=== PATIENT | female | born 1995 | race Two or more races ===

== ENCOUNTER 2025-04-04 18:48 | Emergency (ER) | payer MEDICAID, SELFPAY ==
[2025-04-04 18:49] VITALS: BMI 35.3
[2025-04-04 20:16] VITALS: BP 155/95; PULSE 60; RESP 16; TEMP 36.6; O2SAT 97
--- NOTE | 2025-04-04 20:19 | PD.EDBACK ---
ED Back Injury Pain RME/HPI General Chief Complaint: Back Pain/Injury Stated Complaint: I THINK I HAVE PINCHED NERVE, BACK PAIN Time Seen by Provider: 04/04/25 20:04 Arrival date/time: 04/04/25 18:48 29F with no significant PMH presents to ED with low back pain after she lifted her legs to put on some jeans. Patient denies fall/trauma and bowel/bladder incontinence. Limitations: no limitations Related Data Previous Rx's ?Medication ?Instructions ?Recorded Acetaminophen ER * (TYLENOL ER *) 650 mg PO Q8HR PRN PAIN ##30 10/18/16 ibuprofen 600 mg tablet 600 mg PO Q6HR PRN PAIN #30 tabs 10/18/16 Allergies Allergy/AdvReac Type Severity Reaction Status Date / Time No Known Allergies Allergy Verified 04/04/25 18:49 Review of Systems Review of Systems Systems Reviewed: All systems reviewed, normal except as documented Musculoskeletal Musculoskeletal: Reports as per HPI and Reports back pain Past Medical History Social History SMOKING STATUS: Never smoker ED Exam General Limitations: Present no limitations General appearance: Present alert and in no apparent distress Head Head exam: Present atraumatic Neck Neck exam: Present normal inspection, full ROM and trachea midline Chest Chest inspection: Present normal inspection and symmetric chest wall rise Neurological Exam Neurological exam: Present alert and oriented X3 Psychiatric Psychiatric exam: Present normal affect and normal mood Skin Skin exam: Present warm, dry, intact and normal color Course Quality Measures none Orders Category Date Time Status Baclofen [Lioresal] Med 04/04/25 20:11 Discontinued 10 mg PO X1 ONE Ketorolac Inj [Toradol Inj] Med 04/04/25 20:11 Discontinued 60 mg IM X1 ONE Vital Signs Vital signs: Vital Signs Temperature 97.9 F 04/04/25 20:16 Pulse Rate 60 04/04/25 20:16 Respiratory Rate 16 04/04/25 20:16 Blood Pressure 155/95 H 04/04/25 20:16 Pulse Oximetry (%) 97 04/04/25 20:16 Oxygen Delivery Method Room Air 04/04/25 20:16 O2 at 97% on RA and WNLs Back Pain / Injury MDM Narrative MDM Narrative:: 29F with no significant PMH presents to ED with low back pain after she lifted her legs to put on some jeans. Patient denies fall/trauma and bowel/bladder incontinence. Physical exam reveals uncomfortable female. Patient is afebrile and alert. Slight limp with gait. Meds and outreach counselor given. Patient data External records reviewed:: [facility] previous records Clinical information provided by:: patient Social determinants that could affect healthcare access:: none Patient has the following chronic illnesses:: none How is presenting disease/condition affected by chronic disease/condition?: no chronic disease Evaluation data The following diagnostics were reviewed and interpreted by me:: other (specify) (none) Lab and/or radiology exams considered but not ordered:: not ordered Interpretation Summary: n/a Medications / Prescriptions Medications or Prescriptions considered but not ordered:: ordered Medication administrations:: Medication Administration History Discontinued Medications Baclofen (Baclofen 10 Mg Tablet) 10 mg PO X1 ONE Stop: 04/04/25 20:12 Ketorolac Tromethamine (Ketorolac Inj 60 Mg/2 Ml Vial) 60 mg IM X1 ONE Stop: 04/04/25 20:12 above Consultations Consultation(s) initiated? (list below): No Diagnosis Differential diagnosis back pain/injury: lumbar radiculopathy, sciatica, strain of lumbar region, renal colic, pyelonephritis, thoracic back pain, AAA and discitis Most likely diagnosis given after review of the tests above:: straim of lumbar region Admission Indicated Admission indicated?: not indicated Admission Request Was there a request for admission?: No Disposition Plan Disposition Plan: Discharge Discharge Attestation Discharge Attestation: The patient and all family members were given an opportunity to ask questions and understood the discharge instructions. Discharge instructions specifically effects, indications for sooner follow up or return to the emergency department, and the expected course of current diagnosis. Patient condition: Stable Discharge Plan Plan Patient Disposition: HOME (Self Care) Discharge Disposition comment: Stable Prescriptions/Referrals Prescriptions/Med Rec: No Action Acetaminophen ER * (TYLENOL ER *) 650 MG TABLET.ER 650 mg PO Q8HR PRN (Reason: PAIN) Qty: 30 0RF ibuprofen 600 MG tablet 600 mg PO Q6HR PRN (Reason: PAIN) Qty: 30 0RF Referrals: Katelyn Colbert PA-C [Primary Care Provider] - In 1 week Problem List Clinical Impression: Strain of lumbar region Patient/Caregiver Discharge Instructions Education Materials: ED Back Sprain/Strain Additional Instructions: Please follow-up with PCP within 24-48 hours and return immediately if symptoms worsen. NSAIDs like ibuprofen tend to work better for this type of pain. Print Language: Palestinian Stand Alone Forms: Patient Portal Info Letter PA/[employer] Supervising Physician KARINA/ALEXUS Supervising Physician: Dr. Randle
[2025-04-04] MEDS: KETOROLAC INJ 60 MG/2 ML VIAL IM (20:54)
[2025-04-04] MEDS: BACLOFEN 10 MG TABLET PO (20:55)
== END 2025-04-04 21:35 | disposition home or self-care (01) ==
PROVIDERS: Emergency Provider Emergency Medicine; PCP Physician Assistant
DX: S39.012A Strain of muscle, fascia and tendon of lower back, initial encounter (principal); X50.9XXA Other and unspecified overexertion or strenuous movements or postures, initial encounter; Y93.89 Activity, other specified
CPT/HCPCS: 96372; 99283; J1885; A9270

== ENCOUNTER 2025-04-06 09:51 | Emergency (ER) | payer MEDICAID, SELFPAY ==
[2025-04-06 09:53] VITALS: PULSE 78; RESP 18; O2SAT 99; BMI 53.6
[2025-04-06 10:08] VITALS: BP 137/88; RESP 18; TEMP 36.9; O2SAT 95
--- NOTE | 2025-04-06 10:13 | PD.EDBACK ---
ED Back Injury Pain RME/HPI General Chief Complaint: Back Pain/Injury Stated Complaint: BACK PAIN Time Seen by Provider: 04/06/25 10:50 Arrival date/time: 04/06/25 09:51 Limitations: no limitations RME / HPI RME / HPI Narrative: DR. THADDEUS CHAUDHARI ED EVALUATION: 29-year-old female presents to the Emergency Department via EMS with complaints of mid-back pain on the right side radiating down her right leg. She reports that the pain began recently and has been worsening despite taking Tylenol and ibuprofen as recommended by her clinic. She denies numbness, tingling, weakness, or bowel or bladder incontinence. No history of trauma, fever, or dysuria. No known allergies. Related Data Previous Rx's ?Medication ?Instructions ?Recorded Acetaminophen ER * (TYLENOL ER *) 650 mg PO Q8HR PRN PAIN ##30 10/18/16 ibuprofen 600 mg tablet 600 mg PO Q6HR PRN PAIN #30 tabs 10/18/16 Allergies Allergy/AdvReac Type Severity Reaction Status Date / Time No Known Allergies Allergy Verified 04/06/25 09:56 Review of Systems Review of Systems Systems Reviewed: All systems reviewed, normal except as documented Past Medical History Past Medical History CARDIAC: Positive Heart Murmur (as a child but resolved) Social History SMOKING STATUS: Never smoker SUBSTANCE USE: does not use ALCOHOL: Never ED Exam General Limitations: Present no limitations General appearance: Present alert and in distress (looks uncomfortable) Head Head exam: Present atraumatic, normocephalic and normal inspection Eye Eye exam: Present normal appearance, PERRL and EOMI ENT ENT exam: Present normal exam, normal oropharynx and mucous membranes moist Neck Neck exam: Present normal inspection, full ROM and trachea midline Chest Chest inspection: Present normal inspection and symmetric chest wall rise Respiratory Respiratory exam: Present normal lung sounds bilaterally Cardiovascular Cardiovascular exam: Present regular rate, normal rhythm and normal heart sounds Abdominal Exam Abdominal exam: Present soft and normal bowel sounds; Absent distention, tenderness, guarding or rebound Extremities Exam Extremities exam: Present normal inspection and full ROM Back Exam Back exam: Present other (Tenderness to palpation over right paraspinal lumbar region; no midline tenderness, step-offs, or deformity.) Neurological Exam Neurological exam: Present alert, oriented X3, CN II-XII intact and other (Reflexes 2+ and symmetric, no focal deficits.) Psychiatric Psychiatric exam: Present normal affect and normal mood Skin Skin exam: Present warm, dry, intact and normal color Course Quality Measures none Orders Category Date Time Status HCG,Qualitative Serum Stat Lab 04/06/25 12:30 Completed Acetaminophen Tab [Tylenol Tab] Med 04/06/25 12:20 Discontinued 650 mg PO X1 ONE Diazepam [Valium] Med 04/06/25 12:20 Discontinued 5 mg PO X1 ONE Lidocaine 5% Patch Med 04/06/25 12:20 Discontinued 1 patch TOP X1 ONE Vital Signs Vital signs: Vital Signs Temperature 98.4 F 04/06/25 10:08 Respiratory Rate 18 04/06/25 10:08 Blood Pressure 137/88 H 04/06/25 10:08 Pulse Oximetry (%) 95 04/06/25 10:08 Oxygen Delivery Method Room Air 04/06/25 10:08 Back Pain / Injury MDM Narrative MDM Narrative:: Patient presents with back pain. VS and exam as listed. Patient w/o red flags for back pain,. No saddle anesthesia, urinary/bowel incontinence or retention, no midline ttp of spine, no fever. No weaknesss or other FND. Patient pain worse with leg extension u/l. Concern for sciatic nerve pain. Provided medications for symptom relief. On re-evaluation patient asymptomatic, able to ambulate w/o dofficult. Advised on PT and follow up with PCP Gem Lynne am scribing for and in the presence of Dr. Shaver. Patient data External records reviewed:: [facility] previous records and EMS form Clinical information provided by:: patient and EMS Social determinants that could affect healthcare access:: none Patient has the following chronic illnesses:: Denies any PMHx, surgeries, daily medications, or known allergies. How is presenting disease/condition affected by chronic disease/condition?: no chronic disease Evaluation data The following diagnostics were reviewed and interpreted by me:: other (specify) (none) Lab and/or radiology exams considered but not ordered:: none Interpretation Summary: See MDM narrative above. Medications / Prescriptions Medications or Prescriptions considered but not ordered:: none Medication administrations:: Medication Administration History Discontinued Medications Acetaminophen (Acetaminophen 325 Mg Tablet) 650 mg PO X1 ONE Stop: 04/06/25 12:21 Last Admin: 04/06/25 12:38 Dose: 650 mg Documented By: BY Diazepam (Diazepam 5 Mg Tablet) 5 mg PO X1 ONE Stop: 04/06/25 12:21 Last Admin: 04/06/25 12:38 Dose: 5 mg Documented By: BY Lidocaine (Lidocaine 5% 1 Patch) 1 patch TOP X1 ONE Stop: 04/06/25 12:21 Last Admin: 04/06/25 12:38 Dose: 1 patch Documented By: BY see above if any Consultations Consultation(s) initiated? (list below): No Diagnosis Differential diagnosis back pain/injury: other (Sciatica, lumbar radiculopathy, and musculoskeletal back strain.) Most likely diagnosis given after review of the tests above:: Sciatica Admission Indicated Admission indicated?: not indicated Admission Request Was there a request for admission?: No Disposition Plan Disposition Plan: Discharge Discharge Attestation Discharge Attestation: The patient and all family members were given an opportunity to ask questions and understood the discharge instructions. Discharge instructions specifically effects, indications for sooner follow up or return to the emergency department, and the expected course of current diagnosis. Patient condition: Stable Discharge Plan Plan Patient Disposition: HOME (Self Care) Prescriptions/Referrals Prescriptions/Med Rec: No Action Acetaminophen ER * (TYLENOL ER *) 650 MG TABLET.ER 650 mg PO Q8HR PRN (Reason: PAIN) Qty: 30 0RF ibuprofen 600 MG tablet 600 mg PO Q6HR PRN (Reason: PAIN) Qty: 30 0RF Referrals: Katelyn Colbert PA-C [Primary Care Provider] - In 1 week Problem List Clinical Impression: Sciatica Patient/Caregiver Discharge Instructions Education Materials: ED Sciatica Additional Instructions: Please perform your exercises to help relieve your sciatic nerve pain every evening. Please stretch regularly. Follow-up with your primary care doctor within 1 to 2 days. Return immediately for worsening symptoms or any symptoms exam Print Language: Slovenian Stand Alone Forms: [employer] Award Info., Patient Portal Info Letter
--- NOTE | 2025-04-06 10:16 | PC.NURSE ---
Pt MACHOAnnita from home c/o extreme lower back pain. States that 3 days ago she was putting on her shoes and felt a pop in her lower back and started to experience pain. The pain has since intensified and is so bad today that it is difficult for her to ambulate. Pt does not have any medical history, denies the pain radiating down her leg, has never had this pain in the past. Pt is currently stable, and is in slightly less pain while laying flat and not moving. Otherwise not in any distress at this time.
[2025-04-06] MEDS: ACETAMINOPHEN 325 MG TABLET 650 MG PO (12:38)
[2025-04-06] MEDS: DIAZEPAM 5 MG TABLET PO (12:38)
[2025-04-06] MEDS: LIDOCAINE 5% 1 PATCH TOP (12:38)
[2025-04-06 12:45] VITALS: BP 142/73; PULSE 74; RESP 18; TEMP 36.8; O2SAT 100
[2025-04-06 13:21] LABS: HCG,Qualitative Serum Negative
[2025-04-06 14:30] VITALS: BP 118/77; PULSE 81; RESP 19; TEMP 36.9; O2SAT 99
[2025-04-06 15:41] VITALS: BP 141/91; PULSE 73; RESP 18; TEMP 36.8; O2SAT 100
== END 2025-04-06 15:42 | disposition home or self-care (01) ==
PROVIDERS: Emergency Provider Emergency Medicine; PCP Physician Assistant
DX: M54.30 Sciatica, unspecified side (principal)
CPT/HCPCS: 36415; 84703; 99283; J3490; A9270